=== PATIENT | female | born 1990 | race Caucasian/White ===

== ENCOUNTER 2020-10-20 14:31 | Day surgery (SDC) | payer BC ==
--- NOTE | 2020-10-20 15:08 | PCM.PREANE ---
Preanesthetic Assessment - Procedure Proposed Procedure: Laparoscopic Appendectomy - Anesthesia/Transfusion/Family Hx Anesthesia History: No Prior Anesthesia Family History of Anesthesia Reaction: Other (see below) (Adopted, unsure of family history.) Transfusion History: No Prior Transfusion(s) - Review of Systems General: No Symptoms Pulmonary: No Symptoms Cardiovascular: No Symptoms Gastrointestinal: Abdominal Pain (Mild currently) Neurological: No Symptoms Other: Reports: None (Obesity BMI 32) - Physical Assessment NPO Status Date: 10/20/20 NPO Status Time: 09:30 Vital Signs: Last Vital Signs Temp 35.8 C L 10/20/20 14:39 Pulse 106 H 10/20/20 14:39 Resp 18 10/20/20 14:39 BP 129/90 10/20/20 14:39 Pulse Ox 96 10/20/20 14:39 Height: 1.68 m Weight: 90.764 kg ASA Class: 1 Mental Status: Alert & Oriented x3 Airway Class: Mallampati = 2 Thyro-Mental Finger Breadths: 3 Mouth Opening Finger Breadths: 3 ROM/Head Extension: Full Lungs: Clear to Auscultation, Normal Respiratory Effort Cardiovascular: Regular Rhythm, Tachycardia - Allergies Allergies/Adverse Reactions: Allergies Allergy/AdvReac Type Severity Reaction Status Date / Time Penicillins Allergy Severe Hives Verified 10/20/20 14:41 guaifenesin [From Mucinex] AdvReac Severe Hallucinati Verified 10/20/20 14:41 ons - Blood Blood Available: No - Acknowledgements Anesthesia Type Planned: General Anesthesia Pt an Appropriate Candidate for the Planned Anesthesia: Yes Alternatives and Risks of Anesthesia Discussed w Pt/Guardian: Yes Pt/Guardian Understands and Agrees with Anesthesia Plan: Yes PreAnesthesia Questionnaire - Past Health History Medical/Surgical History: Denies Medical/Surgical History - SUBSTANCE USE Tobacco Use Status *Q: Never Tobacco User Recreational Drug Use History: No - HOME MEDS Home Medications: Home Meds Acetaminophen [Tylenol Extra Strength] 1,000 mg PO Q4H PRN 10/20/20 [History] Ibuprofen 400 mg PO Q4H PRN 10/20/20 [History]
[2020-10-20] MEDS ORDERED: cefOXitin 2 GM in Premix Bag 1 BAG IV ONE (15:45)
--- NOTE | 2020-10-20 15:45 | PCM.HP.2 ---
H&P History of Present Illness - General Date of Service: 10/20/20 Admit Problem/Dx: acute appendicitis Source of Information: Patient History Limitations: Reports: No Limitations - History of Present Illness Initial Comments - Free Text/Narative: 30 yo woman developed acute right lower quadrant abdominal pain a little over 24 hours ago. She has never had this pain. She has no associated fever, nausea, or vomiting. Pain is worse with movement. The pain has been fairly steady for the past several hours. She went to the [facility] and was found to have evidence of acute appendicitis on CT scan. Lab work was reportedly remarkable for serum glucose in the 400s range- the patient is adopted but has a known family history of diabetes. She herself has not been diagnosed and takes no regular medications. She does not have a PCP. She has not had surgery. She has a drug allergy to penicillins- when she was 1-2 years old she developed hives and shortness of breath. Right Lower Abdomen Pain Score (Numeric/FACES): 4 - Related Data Allergies/Adverse Reactions: Allergies Allergy/AdvReac Type Severity Reaction Status Date / Time Penicillins Allergy Severe Hives Verified 10/20/20 14:41 guaifenesin [From Mucinex] AdvReac Severe Hallucinati Verified 10/20/20 14:41 ons Home Medications: Home Meds Acetaminophen [Tylenol Extra Strength] 1,000 mg PO Q4H PRN 10/20/20 [History] Ibuprofen 400 mg PO Q4H PRN 10/20/20 [History] Past Medical History - Past Health History Medical/Surgical History: Denies Medical/Surgical History Social & Family History - Tobacco Use Tobacco Use Status *Q: Never Tobacco User - Caffeine Use Caffeine Use: Reports: Soda - Recreational Drug Use Recreational Drug Use: No H&P Review of Systems - Review of Systems: Review Of Systems: See Below General: Reports: No Symptoms HEENT: Reports: No Symptoms Pulmonary: Reports: No Symptoms Cardiovascular: Reports: No Symptoms Gastrointestinal: Reports: Abdominal Pain Genitourinary: Reports: No Symptoms Musculoskeletal: Reports: No Symptoms Skin: Reports: No Symptoms Psychiatric: Reports: No Symptoms Neurological: Reports: No Symptoms Hematologic/Lymphatic: Reports: No Symptoms Immunologic: Reports: No Symptoms Exam - Exam Exam: See Below - Vital Signs Vital Signs: Last Vital Signs Temp 35.8 C L 10/20/20 14:39 Pulse 106 H 10/20/20 14:39 Resp 18 10/20/20 14:39 BP 129/90 10/20/20 14:39 Pulse Ox 96 10/20/20 14:39 Weight: 90.764 kg - Exam Quality Assessment: Supplemental Oxygen General: Alert, Oriented, Cooperative HEENT: Conjunctiva Clear Neck: Supple, Trachea Midline Lungs: Clear to Auscultation, Normal Respiratory Effort Cardiovascular: Regular Rhythm, Tachycardia GI/Abdominal Exam: Soft, No Mass, Other (McBurney point tenderness. No rebound, guarding, or referred pain to RLQ) Extremities: Normal Inspection Skin: Warm, Dry Neuro Extensive - Mental Status: Oriented x3 Psychiatric: Normal Mood Sepsis Event Note - Evaluation Sepsis Screening Result: No Definite Risk - Focused Exam Vital Signs: Vital Signs Temp Pulse Resp BP Pulse Ox 10/20/20 14:39 35.8 C L 106 H 18 129/90 96 Problem List Initiated/Reviewed/Updated: Yes Orders Last 24hrs: Active Orders 24 hr Category Date Time Status CORONAVIRUS COVID-19 ORLIN [MOLEC] Routine Lab 10/20/20 14:42 Received cefOXitin [Mefoxin in Dextrose,Iso-Osm 2 GM/50 ML] 2 gm Med 10/20/20 15:38 Ordered Premix Bag 1 bag IV ONETIME Schedule Procedure [COMM] Routine Oth 10/20/20 15:38 Ordered Medication Orders Cefoxitin Sodium 2 gm/ Premix 50 mls @ 100 mls/hr IV ONETIME ONE Stop: 10/20/20 16:07 Assessment/Plan Comment:: History, exam, and labs and imaging indicate acute appendicitis. Plan for laparoscopic appendectomy. Though hyperglycemia may in part be reaction to inflammation from appendicitis she will need close follow up and management for diabetes. - Mortality Measure Prognosis:: Good
[2020-10-20] MEDS ORDERED: Bupivacaine 0.5%/EPINEPHrine 1:200,000 50 ML MDV ONE (16:05)
[2020-10-20] MEDS ORDERED: Propofol 200 MG/20 ML SDV ONE (16:23)
[2020-10-20] MEDS ORDERED: Midazolam 1 MG/ML 2 ML SDV ONE (16:23)
[2020-10-20] MEDS ORDERED: fentaNYL 250 MCG/5 ML SDV ONE (16:23)
[2020-10-20] MEDS ORDERED: Rocuronium 50 MG/5 ML Vial ONE (16:24)
--- NOTE | 2020-10-20 16:37 | PCM.PRNOTE ---
- Free Text/Narrative Note: Date: 10/20/2020 Operation: laparoscopic appendectomy Indication: acute appendicitis Surgeon: David Vargas MD EBL: minimal Antibiotic: 2 g cefoxitin IV pre-op DVT PPX: SCDs Findings: inflamed appendix without gangrene or perforation. Detailed Report: The patient was taken to the operating room and placed supine on the table. Time out was performed and general endotracheal anesthesia was initiated. The left arm was tucked and the abdomen was prepped and draped in usual sterile fashion. A Veress needle was placed at the left upper quadrant to establish pneumoperitoneum. Air was aspirated at the umbilicus, and a 12 mm bladed trocar was placed at this site. The 5 mm 30 degree laparoscope was inserted into the abdomen. The Veress needle did not cause injury and was removed. Additional ports were placed at the suprapubic region and left lower quadrant. The patient was positioned in Trendelenburg and the appendix was identified in the right lower quadrant. A window was made in the mesoappendix at the base of the appendix using the [place] Ligasure. The mesoappendix was divided using the Ligasure along the length of the appendix. After initially stapling off the appendix with a single white staple load (30 mm), there was some bleeding from the mesoappendix, controlled with pressure. It did appear that there was a little appendiceal stump left. There was an epiploica of the terminal ileum that was mildly indurated and in the way so this was removed with the Ligasure. The remaining mesoappendix was divided with the Ligasure and two more staple fires were done in order to ensure complete removal of the appendix. The specimen, along with the epiploic fat, was removed in an endocatch bag. The dissection field was clean and dry after suctioning. The larger port site was closed at the level of fascia with 0 vicryl using a laparoscopic suture passer. There was some hemorrhage noted from the abdominal wall on removal of the left lateral port noted with the laparoscope. Monopolar energy was applied which was ineffective, so a ligating 0 vicryl suture was placed using the suture passer. At this point, hemostasis was satisfactory. Pneumoperitoneum was released. Skin was closed with subcuticular vicryl suture and dressed with dermabond. A total of 30 cc 0.5% marcaine with epinephrine was used for local anesthetic. The patient tolerated the procedure well.
[2020-10-20] MEDS ORDERED: Sodium Chloride 0.9% 100 ML ONE (16:48)
[2020-10-20] MEDS ORDERED: Dexmedetomidine 200 MCG/2 ML SDV ONE (16:48)
[2020-10-20] MEDS ORDERED: Lactated Ringers 1,000 ML ONE ×2 (17:02→17:34)
[2020-10-20] MEDS ORDERED: Dexamethasone 4 MG/ML 5 ML MDV ONE (17:07)
[2020-10-20] MEDS ORDERED: Ondansetron 4 MG/2 ML SDV ONE (17:07)
[2020-10-20] MEDS ORDERED: Glycopyrrolate 0.2 MG/ML SDV ONE (17:09)
[2020-10-20] MEDS ORDERED: HYDROmorphone 0.5 MG/0.5 ML Syringe ONE (17:32)
[2020-10-20] MEDS ORDERED: Albuterol 0.083% 2.5 MG/3 ML Neb Soln NEB PRN (18:15)
[2020-10-20] MEDS ORDERED: fentaNYL 100 MCG/2 ML SDV IVPUSH PRN (18:15)
[2020-10-20] MEDS ORDERED: ePHEDrine 50 MG/ML SDV IVPUSH PRN (18:15)
[2020-10-20] MEDS ORDERED: diphenhydrAMINE 50 MG/ML SDV IVPUSH PRN (18:15)
[2020-10-20] MEDS ORDERED: Ondansetron 4 MG/2 ML SDV IVPUSH PRN (18:15)
[2020-10-20] MEDS ORDERED: HYDROmorphone 0.5 MG/0.5 ML Syringe IVPUSH PRN (18:15)
--- NOTE | 2020-10-20 18:17 | PCM.POSTAN ---
POST ANESTHESIA ASSESSMENT - MENTAL STATUS Mental Status: Alert - VITAL SIGNS Vital Signs: Last Vital Signs Temp 36.2 C 10/20/20 18:01 Pulse 101 H 10/20/20 18:01 Resp 16 10/20/20 18:12 BP 117/69 10/20/20 18:01 Pulse Ox 95 10/20/20 18:12 - RESPIRATORY Respiratory Status: Respiratory Rate WNL, Airway Patent, O2 Saturation Stable, Supplemental Oxygen - CARDIOVASCULAR CV Status: Pulse Rate WNL, Blood Pressure Stable - GASTROINTESTINAL GI Status: No Symptoms - POST OP HYDRATION Hydration Status: Adequate & Stable
[2020-10-20] MEDS ORDERED: oxyCODONE 5 MG Tab PO PRN (18:32)
--- NOTE | 2020-10-20 19:05 | PCM48HPAN ---
Post Anesthesia Note - EVALUATION WITHIN 48HRS OF ANESTHETIC Vital Signs in Normal Range: Yes Patient Participated in Evaluation: Yes Respiratory Function Stable: Yes Airway Patent: Yes Cardiovascular Function Stable: Yes Hydration Status Stable: Yes Pain Control Satisfactory: Yes Nausea and Vomiting Control Satisfactory: Yes Mental Status Recovered: Yes Vital Signs: Last Vital Signs Temp 36.3 C 10/20/20 18:45 Pulse 101 H 10/20/20 18:45 Resp 16 10/20/20 18:45 BP 133/85 10/20/20 18:45 Pulse Ox 90 L 10/20/20 18:45
== END 2020-10-20 20:43 | disposition home or self-care (01) ==
LOC: JD.ED 14:31 → JD.SDS 15:42
PROVIDERS: ATTEND Surgery
DX: K35.30 Acute appendicitis with localized peritonitis, without perforation or gangrene (principal); Z88.0 Allergy status to penicillin; Z88.8 Allergy status to other drugs, medicaments and biological substances; Z79.899 Other long term (current) drug therapy; Z01.812 Encounter for preprocedural laboratory examination; Z20.822 Contact with and (suspected) exposure to COVID-19
CPT/HCPCS: 44970; 82947; 87635; J0694; J1100; J1170; J2250; J2405; J2704; J2710; J3010; J3490; J7120; 00840; 99140; U0002

== ENCOUNTER 2024-03-23 06:30 | Emergency (ER) | payer BC ==
[2024-03-23] MEDS: Adenosine 6 MG/2 ML SDV IVPUSH ONE (06:51)
[2024-03-23] MEDS ORDERED: Sodium Chloride 0.9% 10 ML Syringe FLUSH PRN (06:56)
[2024-03-23] MEDS: Sodium Chloride 0.9% 1,000 ML IV SCH (06:58)
[2024-03-23] MEDS: Adenosine 6 MG/2 ML SDV ONE (06:59)
[2024-03-23 07:24] LABS: BASOPHILS PERCENT AUTO 0.1 % (0.0-1.0); EOSINOPHILS ABSOLUTE AUTO 0.1 K/mm3 (0.0-0.4); EOSINOPHILS PERCENT AUTO 1.6 % (0.0-6.0); HEMATOCRIT 35.1 % (37.0-47.0); HEMOGLOBIN 12.5 gm/dl (12.0-16.0); IMMATURE GRAN ABSOLUTE AUTO 0.02 K/mm3 (0.00-0.05); IMMATURE GRAN PERCENT AUTO 0.3 % (0.0-0.4); LYMPHOCYTES PERCENT AUTO 37.3 % (24.0-44.0); MEAN CORPUSCULAR HEMOGLOBIN 30.2 pg (28.0-32.0); MEAN CORPUSCULAR HGB CONC 35.6 g/dl (32.0-36.0); MEAN CORPUSCULAR VOLUME 84.8 fl (83.0-99.0); MEAN PLATELET VOLUME 9.6 fl (9.4-12.3); MONOCYTES ABSOLUTE AUTO 0.5 K/mm3 (0.0-0.8); MONOCYTES PERCENT AUTO 6.1 % (0.0-8.0); NEUTROPHILS ABSOLUTE AUTO 4.4 K/mm3 (1.8-7.7); NEUTROPHILS PERCENT AUTO 54.6 % (41.0-71.0); PLATELET COUNT,PLT 262 K/mm3 (150-400); RED BLOOD CELL COUNT 4.14 M/mm3 (4.10-5.30)
[2024-03-23 07:54] LABS: A/G RATIO 0.8 (1-2); ALBUMIN 3.2 g/dl (3.4-5.0); ANION GAP 17.1 (5-15); BILIRUBIN TOTAL 0.5 mg/dL (0.2-1.0); CALCIUM 8.4 mg/dL (8.5-10.1); EST CRCL DRUG DOSING (CG) 76.36 mL/min; POTASSIUM,K 4.1 mEq/L (3.5-5.1); PROTEIN TOTAL,TP 7.1 g/dl (6.4-8.2)
[2024-03-23 08:30] LABS: HEMOGLOBIN A1C 12.1 %
== END 2024-03-23 10:05 | disposition home or self-care (01) ==
LOC: JD.ED 06:30
DX: I47.10 Supraventricular tachycardia, unspecified (principal); E11.65 Type 2 diabetes mellitus with hyperglycemia; Z88.0 Allergy status to penicillin; Z88.8 Allergy status to other drugs, medicaments and biological substances
CPT/HCPCS: 36415; 80053; 83036; 84443; 85025; 93005; 96361; 96374; 99285; J0153; J7030